=== PATIENT | male | born 1985 ===

== ENCOUNTER 2022-03-16 06:00 | Outpatient (CLI) | payer OTHER ==
--- NOTE | 2022-03-16 14:22 | XRAY Report ---
PROCEDURE: Shoulder 2 View LT INDICATIONS: SHOULDER PAIN TECHNIQUE: 2 views of the shoulder were acquired. COMPARISON: 12/31/2021 FINDINGS: Bones: No fractures or dislocations. No suspicious bony lesions. Visualized ribs appear intact. Soft tissues: No suspicious soft tissue calcifications. IMPRESSION: No fracture. No osseous lesion. If symptoms and/or clinical concern for pathology persis ts, further assessment with repeat plain film radiographs (7-10 days) or advanced imaging (CT, MR, marcus ne scan) should be considered. Reviewed by: Charito Pierre MD, PhD on 03/16/2022 2:21 PM PDT Approved by: Charito Pierre MD, PhD on 03/16/2022 2:21 PM PDT Station ID: [id number]
== END 2022-03-16 23:59 | disposition home or self-care (01) ==
LOC: DI.WOS 06:00
PROVIDERS: ATTEND Orthopaedic Surgery
DX: M25.512 Pain in left shoulder (principal)